=== PATIENT | female | born 1980 | race Caucasian/White ===

== ENCOUNTER 2020-02-11 00:52 | Outpatient (CLI) | payer BC, SELFPAY ==
[2020-02-11 20:05] LABS: SARS-CoV-2 RNA PCR Negative
== END 2020-02-11 00:53 | disposition home or self-care (01) ==
LOC: ANHCOVIDDT 00:52
PROVIDERS: PCP Internal Medicine; Visit Provider Internal Medicine Gastroenterology
DX: Z01.812 Encounter for preprocedural laboratory examination (principal); Z11.59 Encounter for screening for other viral diseases
CPT/HCPCS: 87635; C9803; U0003

== ENCOUNTER 2020-02-14 00:39 | Day surgery (SDC) | payer BC, SELFPAY ==
[2020-02-07 11:04] VITALS: BMI 33.3
[2020-02-14 07:22] VITALS: BP 131/64; PULSE 86; RESP 20; TEMP 36.6; O2SAT 99
--- NOTE | 2020-02-14 07:28 | PM.HPGS ---
History of Present Illness History of Present Illness Consent: Risks, benefits, and alternatives have been discussed and questions answered. Patient agrees to proceed with procedure. Chief complaint: Fam Hx Colon Ca/ Personal Hx Colon Polyps/ Screen Narrative: January Moss is a 39 year old W female referred for colonoscopy secondary history of colonic polyps. Patient had a moderate size sigmoid polyp removed in 2011. She received a letter in 2013 to return for colonoscopy but did not do so. Patient has a family history of colon cancer mother who was diagnosed in her 30s. Patient is asymptomatic. [facility] Past Medical History Medical History (Updated 02/14/20 @ 07:32 by Josef Ruiz MD) Degeneration of intervertebral disc at L5-S1 level GERD (gastroesophageal reflux disease) Surgical History Surgical History (Updated 02/14/20 @ 07:32 by Josef Ruiz MD) History of appendectomy Hx laparoscopic cholecystectomy S/P arthroscopic surgery of left knee Meds Home Medications and Allergies Home Medications Medication Instructions Recorded Confirmed Type omeprazole 40 mg PO DAILY 02/07/20 02/07/20 History Allergies Allergy/AdvReac Type Severity Reaction Status Date / Time No Known Allergies Allergy Verified 02/14/20 07:21 Vital Signs Vital Signs - 24 hr 02/14/20 07:22 Temperature 36.6 C Pulse Rate 86 Respiratory Rate 20 Blood Pressure 131/64 Pulse Oximetry 99 Exam Const: Orientation/consciousness: patient oriented x3 Resp: Auscultation: clear to auscultation bilaterally Cardio: Rate: regular rate Rhythm: regular rhythm Heart sounds: no murmurs GI: GI Palp: Yes Soft to palpation, No Tenderness to palpation present (GI), Yes No hepatosplenomegaly present and No Palpable mass present Auscultation: normal bowel sounds Neuro: General: patient oriented x3 and no focal motor deficits Extrem: General: no pedal edema Assessment and Plan Additional Plan screening colonoscopy in high risk patient
[2020-02-14] MEDS: LACTATED RINGERS 1,000 ML 150 ML IV CONT (07:34)
--- NOTE | 2020-02-14 07:35 | WPDANESEPPF ---
Anes - Initial Pre Proc Eval Procedure: Operation Date: 02/14/20 08:30 Proposed Procedures p Screening Colonoscopy - Josef Ruiz MD Date/Time: 02/14/20 07:35 Surgeon: Josef Ruiz MD Pre Op Diagnosis: Fam Hx Colon Ca/ Personal Hx Colon Polyps/ Screen Patient Data Age: 39 Gender: F Height: 1.55 m Weight: 89.7 kg Last Vital Signs Temp 36.6 C 02/14/20 07:22 Pulse 86 02/14/20 07:22 Resp 20 02/14/20 07:22 BP 131/64 02/14/20 07:22 Pulse Ox 99 02/14/20 07:22 Allergies Allergy/AdvReac Type Severity Reaction Status Date / Time No Known Allergies Allergy Verified 02/14/20 07:21 Home Medications Medication Instructions Recorded Confirmed Type omeprazole 40 mg PO DAILY 02/07/20 02/07/20 History Patient hx anesthesia problems: none Family hx anesthesia problems: none [facility] Past Medical History Medical History (Updated 02/14/20 @ 07:36 by Onofre Duncan MD) Degeneration of intervertebral disc at L5-S1 level GERD (gastroesophageal reflux disease) Obesity Surgical History Surgical History (Updated 02/14/20 @ 07:32 by Josef Ruiz MD) History of appendectomy Hx laparoscopic cholecystectomy S/P arthroscopic surgery of left knee Anes - Eval Final PreProcedure Day of Procedure 02/14/20 07:35 Patient weight: obese Heart: regular rate and rhythm Lungs: clear to auscultation and normal air movement Airway: Mallampati scale class II Neurological: alert and oriented Last oral intake: >/= 8 hours ASA classification: II Emergent: no Anesthetic plan: proceed Anesthesia type and monitoring: general GIVS Informed Consent: The patient's anesthetic plan and its attendant risks and benefits were discussed with the patient/family/POA. Questions were solicited and answers provided to the satisfaction of the patient/family/POA.
[2020-02-14] MEDS: SIMETHICONE ORAL SUSPENSION 20 MG/0.3 ML 30 ML BOTTLE 0.6 ML IRRIGATION (08:51)
[2020-02-14 08:58] VITALS: BP 118/73; PULSE 73; RESP 20; O2SAT 96
[2020-02-14 09:08] VITALS: BP 126/75; PULSE 79; RESP 21; O2SAT 96
[2020-02-14 09:18] VITALS: BP 120/77; PULSE 66; RESP 15; O2SAT 100
== END 2020-02-14 09:29 | disposition home or self-care (01) ==
PROVIDERS: PCP Internal Medicine; Visit Provider Internal Medicine Gastroenterology
PROC: 0DJD8ZZ Inspection of Lower Intestinal Tract, Via Natural or Artificial Opening Endoscopic (ICD-10-PCS; CPT 45378; principal; 2020-02-14 08:30)
DX: Z12.11 Encounter for screening for malignant neoplasm of colon (principal); K64.4 Residual hemorrhoidal skin tags; K57.30 Diverticulosis of large intestine without perforation or abscess without bleeding; Z80.0 Family history of malignant neoplasm of digestive organs; Z83.71 Family history of colonic polyps; K21.9 Gastro-esophageal reflux disease without esophagitis; M51.37 Other intervertebral disc degeneration, lumbosacral region; E66.9 Obesity, unspecified; Z68.37 Body mass index [BMI] 37.0-37.9, adult
CPT/HCPCS: 45378; J2704; J7120

== ENCOUNTER → 2021-08-22 12:24 | Outpatient (CLI) | payer BC, SELFPAY ==
--- NOTE | ~2021-08-22 | MM_ITS ---
EXAMINATION: MM screening [facility] BI w emmy HISTORY: Baseline screening mammogram TECHNIQUE: Craniocaudal and mediolateral oblique 3-D tomosynthesis images were obtained and synthetic 2-D images were generated. CAD analysis was submitted and interpreted. COMPARISON: None, baseline BREAST PARENCHYMAL COMPOSITION: There are scattered areas of fibroglandular density. FINDINGS: RIGHT BREAST: There is no evidence of suspicious mass, calcification, or architectural distortion to suggest malignancy. LEFT BREAST: There is a possible 4 mm mass in the upper outer quadrant of the breast approximately 3 cm from the nipple. IMPRESSION: 1. Possible left breast mass. 2. Additional mammographic views and possible breast ultrasound are recommended. BI-RADS Category 0: Incomplete: Needs additional imaging evaluation. Reviewed, dictated and finalized at location A. CARE WORKER IMPRESSION: 1. Possible left breast mass. 2. Additional mammographic views and possible breast ultrasound are recommended . BI-RADS Category 0: Incomplete: Needs additional imaging evaluation.
== END ==
PROVIDERS: Visit Provider Obstetrics & Gynecology
DX: Z12.31 Encounter for screening mammogram for malignant neoplasm of breast (principal); R92.8 Other abnormal and inconclusive findings on diagnostic imaging of breast
CPT/HCPCS: 77063; 77067

== ENCOUNTER 2021-09-11 14:10 | Outpatient (CLI) | payer BC, SELFPAY ==
--- NOTE | ~2021-09-11 | MM_ITS ---
EXAMINATION: MM diagnostic [facility] w emmy HISTORY: Possible left breast mass reported on screening August 22, 2021 mammogram TECHNIQUE: Additional 3-D tomosynthesis images of the left breast were performed and synthetic 2-D im ages were generated. Rolled medial and rolled lateral craniocaudal views. CAD analysis was submitted and interpreted. COMPARISON: August 22, 2021 bilateral screening mammogram FINDINGS: No reproducible mass or architectural distortion or other significant abnormality is detect ed. IMPRESSION: 1. No mammographic evidence of malignancy 2. Routine mammographic screening is recommended. BI-RADS Category 1: Negative Reviewed, dictated and finalized at location A. PSULATOR
== END 2021-09-11 14:11 ==
LOC: MICIMG 14:11
PROVIDERS: Visit Provider Obstetrics & Gynecology
DX: R92.8 Other abnormal and inconclusive findings on diagnostic imaging of breast (principal)
CPT/HCPCS: 77061; 77065; G0279

== ENCOUNTER 2024-03-19 13:44 | Outpatient (CLI) | payer OTHER, SELFPAY ==
--- NOTE | ~2024-03-19 | MM_ITS ---
EXAMINATION: MM screening [facility] BI w emmy HISTORY: Screening TECHNIQUE: Craniocaudal and mediolateral oblique 3-D tomosynthesis images were obtained and synthetic 2-D images were generated. CAD analysis was submitted and interpreted. COMPARISON: Comparison to multiple prior studies sequentially, with oldest reviewed study dated 08/2021. BREAST PARENCHYMAL COMPOSITION: Not dense: There are scattered areas of fibroglandular density. FINDINGS: There is no evidence of suspicious mass, calcification, or architectural distortion to sugg est malignancy in either breast. There has been no suspicious interval change. IMPRESSION: 1. No mammographic evidence of malignancy. 2. Recommend routine screening mammography in one year. BI-RADS Category 1: Negative Reviewed, dictated and finalized at location B.
== END 2024-03-19 13:45 ==
PROVIDERS: PCP Obstetrics & Gynecology; Visit Provider Obstetrics & Gynecology
DX: Z12.31 Encounter for screening mammogram for malignant neoplasm of breast (principal)
CPT/HCPCS: 77063; 77067